=== PATIENT | female | born 1990 | race Caucasian/White ===

== ENCOUNTER → 2017-04-06 | Outpatient (CLI) | payer BC | LOC: SUN.DIA 04-05 14:22 | DX: O24.419 Gestational diabetes mellitus in pregnancy, unspecified control (principal); Z3A.31 31 weeks gestation of pregnancy; Z71.3 Dietary counseling and surveillance | CPT/HCPCS: G0108 ==

== ENCOUNTER → 2017-04-06 | Outpatient (CLI) | payer BC | LOC: SUN.DIA 15:15 | DX: O24.419 Gestational diabetes mellitus in pregnancy, unspecified control (principal); Z3A.31 31 weeks gestation of pregnancy; Z71.3 Dietary counseling and surveillance | CPT/HCPCS: G0108 ==

== ENCOUNTER → 2017-04-20 | Outpatient (CLI) | payer BC | LOC: SUN.DIA 12:35 | DX: O24.419 Gestational diabetes mellitus in pregnancy, unspecified control (principal); Z3A.33 33 weeks gestation of pregnancy; Z71.3 Dietary counseling and surveillance | CPT/HCPCS: G0108 ==

== ENCOUNTER → 2017-05-13 | Outpatient (CLI) | payer BC ==
[~2017-05-13] MED LIST: CALCIUM CARBON650 M2; IBU800 M1 PO; PERCOCET 325 MG1 TA2 PO; PRENATAL
== END ==
LOC: SUN.DIA 09:43
DX: O24.419 Gestational diabetes mellitus in pregnancy, unspecified control (principal); Z3A.37 37 weeks gestation of pregnancy; Z71.3 Dietary counseling and surveillance
CPT/HCPCS: G0108

== ENCOUNTER 2017-06-05 07:18 | Inpatient (IN) | payer BC ==
[2017-06-05] VITALS (49 sets, daily range): BP systolic 115–141; BP diastolic 70–94; PULSE 71–125; TEMP 97.1–98.1
[~2017-06-05] VITALS: Ht 162.6 cm; Wt 60.5 kg
[2017-06-05] MEDS ORDERED: PRENATAL (07:39)
[2017-06-05] MEDS ORDERED: CALCIUM CARBON650 M2 (07:40)
[2017-06-05 10:08] LABS: BASO # 0.1 (0.0-0.2); BASO % 0.3 % (0.0-2.0); EOS % 0.2 % (0-4.0); GRAN # 15.9 (1.4-6.5); HEMOGLOBIN 12.8 g/dl (12.5-16.0); LYMPH # 1.7 (1.2-3.4); LYMPH % 9.3 % (20.0-51.0); MEAN CELL VOLUME 89 fl (80.0-100.0); MEAN CORPUSCULAR HEMOGLOBIN 30 pg (27.0-31.0); MEAN CORPUSCULAR HGB CONC 34 g/dl (33.0-37.0); MEAN PLATELET VOLUME 12.2 fl (7.4-10.4); MONO # 0.8 (0.1-0.6); MONO % 4.5 % (1.7-9.3); PLATELET COUNT 203 K/mm3 (130-400); RED BLOOD COUNT 4.28 M/mm3 (4.10-5.30); WHITE BLOOD COUNT 18.7 K/mm3 (4.8-10.8)
[2017-06-06 03:00] VITALS: BP 103/68; PULSE 87; TEMP 98.3
[2017-06-06 06:34] VITALS: BP 117/80; PULSE 87; TEMP 97.7
[2017-06-06 12:00] VITALS: BP 148/70; PULSE 105; TEMP 98
[2017-06-06 16:30] VITALS: BP 118/79; PULSE 85; TEMP 98.3
[2017-06-06 19:30] VITALS: BP 120/78; PULSE 74; TEMP 97.7
[2017-06-07 07:45] VITALS: BP 114/71; PULSE 68; TEMP 98.3
[2017-06-07] MEDS ORDERED: IBU800 M1 PO (09:58)
[2017-06-07] MEDS ORDERED: PERCOCET 325 MG1 TA2 PO (09:58)
== END 2017-06-07 11:30 | disposition home or self-care (01) | DRG 775 ==
LOC: LDRO 07:18 → LDR 09:06 → OB 23:00
PROVIDERS: Student in an Organized Health Care Education/Training Program
PROC: 10E0XZZ Delivery of Products of Conception, External Approach (ICD-10-PCS; principal; 2017-06-05)
PROC: 0KQM0ZZ Repair Perineum Muscle, Open Approach (ICD-10-PCS; 2017-06-05)
DX: O24.420 Gestational diabetes mellitus in childbirth, diet controlled (principal); O70.1 Second degree perineal laceration during delivery; O69.81X0 Labor and delivery complicated by cord around neck, without compression, not applicable or unspecified; Z3A.39 39 weeks gestation of pregnancy; Z37.0 Single live birth
CPT/HCPCS: J2405; J2590; J7120

== ENCOUNTER → 2020-01-15 | Outpatient (CLI) | payer BC ==
[~2020-01-15] MED LIST changes: +MOTRIN 800800 MG/TAB PO; +OSCAL 500 TAB500 MG PO; +SLOW FE142 MG PO
== END ==
LOC: COL.LAB 09:00
DX: Z20.828 Contact with and (suspected) exposure to other viral communicable diseases (principal)

== ENCOUNTER 2020-01-17 06:09 | Inpatient (IN) | payer BC ==
[2020-01-17] VITALS (33 sets, daily range): BP systolic 102–137; BP diastolic 61–88; PULSE 62–122; TEMP 97.4–98.4
[~2020-01-17] VITALS: Ht 165.1 cm; Wt 68.6 kg
[~2020-01-17 06:09] MED LIST changes: -MOTRIN 800800 MG/TAB PO; -OSCAL 500 TAB500 MG PO; -SLOW FE142 MG PO
[2020-01-17] MEDS ORDERED: SLOW FE142 MG PO (07:51)
[2020-01-17] MEDS ORDERED: OSCAL 500 TAB500 MG PO (07:51)
--- NOTE | 2020-01-17 07:57 | NUR ---
PT HERE FOR INDUCTION OF LABOR. FHT'S FOUND IN THE 140'S WITH MODERATE VARIABILITY AND ACCELS. IV STARTED IN RIGHT HAND WITH LR INFUSING WITHOUT DIFFICULTY. ASSESSMENT COMPLETED. PLAN OF CARE REVIEWED WITH PT AND .
[2020-01-17 08:00] LABS: BASO % 0.2 % (0.0-2.0); EOS # 0.1 (0.0-0.7); EOS % 0.8 % (0-4.0); GRAN # 9.4 (1.4-6.5); GRAN % 73.8 % (42.2-75.2); HEMATOCRIT 37.1 % (37.0-47.0); HEMOGLOBIN 12.8 g/dl (12.5-16.0); LYMPH # 2.5 (1.2-3.4); LYMPH % 19.5 % (20.0-51.0); MEAN CELL VOLUME 91 fl (80.0-100.0); MEAN CORPUSCULAR HEMOGLOBIN 32 pg (27.0-31.0); MEAN CORPUSCULAR HGB CONC 35 g/dl (33.0-37.0); MEAN PLATELET VOLUME 11.7 fl (7.4-10.4); MONO # 0.7 (0.1-0.6); MONO % 5.2 % (1.7-9.3); PLATELET COUNT 175 K/mm3 (130-400); RED BLOOD COUNT 4.06 M/mm3 (4.10-5.30); REDCELL DISTRIBUTION WIDTH-CV 13.4 % (11.5-14.5)
--- NOTE | 2020-01-17 08:15 | NUR ---
SVE /-2. CERVIX POSTERIOR. PT RESTING IN BED. PITOCIN STARTED AT 2MU AT 0815
--- NOTE | 2020-01-17 09:00 | NUR ---
DR MARION IN AT 0845, SVE /-2, AROM AT 0846 WITH CLEAR FLUID.
--- NOTE | 2020-01-17 11:15 | NUR ---
VALENCIA REID,IT ADMINISTRATIVE ASSISTANT IN AT 1110 FOR EPIDURAL PLACEMENT. PT POSITIONED SITTING UPRIGHT.
--- NOTE | 2020-01-17 11:30 | NUR ---
SINGLE SHOT AT 1116 BY ARIE NORIEGA, WITH NO ABNORMAL SYMPTOMS OBSERVED OR REPORTED. PT REPOSITIONED LYING DOWN AFTER EPIDURAL PLACEMENT.
--- NOTE | 2020-01-17 12:00 | NUR ---
DR MARION IN AT 1146. SVE /-2, CERVIX NOW MIDPOSITION. FHT'S DOWN TO 90'S AFTER CERVICAL CHECK. PT REPOSITIONED 3 TIMES WITH FHT'S BACK TO BASELINE AFTER [address] MARION AT HOS[facility]ITAL AND OBSERVES DECELERATION. SCHULTZ CATHETER PLACED WITH CLEAR YELLOW URINE RETURNED.
--- NOTE | 2020-01-17 12:45 | NUR ---
DR CORRALES IN AT 1240. SVE /-2. PT REPOSITIONED DAIN POSITION.
--- NOTE | 2020-01-17 13:52 | NUR ---
AFTER PATIENT PLACED IN LEFT LATERAL WITH LEFT LEG IN STIRRUP, AUDIBLE DROP IN FTH'S TO THE 90'S FOR APPROX 2 1/2 MINUTES. PT REPOSITIONED TO WEDGE LEFT, SVE 10/100/+2. PHONED DR MARION AT 1338 WITH UPDATE. PT POSITIONED FOR PUSHING. SVE AT 1342 WITH HEAD LOWER, PHONED DR MARION AT 1341 TO COME FOR DELIVERY. SCHULTZ CATHETER REMOVED WITH BALLOOON INTACT. DR MARION HERE AT 1348. PUSHING STARTED AT 1350. OF FEMALE AT 1352 WITH GOOD COLOR AND VIGOROUS CRY.
--- NOTE | 2020-01-17 14:00 | NUR ---
DR MARION AT BEDSIDE REPAIRING PERINEUM. FUNDUS FIRM, DOWN 3, WITH MINIMAL BLEEDING. PITOCIN STARTED AT 333ML/HR AFTER DELIVERY OF PLACENTA AT 1357. PT HOLDING BABY WITH AT BEDSIDE.
--- NOTE | 2020-01-17 15:35 | NUR ---
PT RESTING IN BED HOLDING BABY. LEFT LEG STILL NUMB. FUNDUS FIRM WITH SMALL AMOUNT OF BLEEDING. IV TO INT.
--- NOTE | 2020-01-17 16:30 | NUR ---
Assisted to wheel chair times two nurses. Patient states left leg still numb. Assisted to toilet. Unable to void at this time. Gris-care explained and done by patient. To room 207 via wheel chair. Encouraged to drink water. Also let her know to use the call light for us to help her to the bathroom.
[2020-01-18 03:30] VITALS: BP 117/71; PULSE 89; TEMP 97.8
[2020-01-18] MEDS ORDERED: MOTRIN 800800 MG/TAB PO (08:54)
[2020-01-18 09:00] VITALS: BP 108/71; PULSE 87; TEMP 97.9
--- NOTE | 2020-01-18 09:00 | NUR ---
Rests in bed, alert. Request pain medication. Tylenol 650 mg given per request and as ordered.
--- NOTE | 2020-01-18 10:53 | NUR ---
Rests in bed, alert, baby. Ibuprofen 800 mg given per request and as ordered.
== END 2020-01-18 16:40 | disposition home or self-care (01) | DRG 806 ==
LOC: LDR 06:09 → OB 16:30
PROVIDERS: ADMIT Student in an Organized Health Care Education/Training Program
PROC: 10E0XZZ Delivery of Products of Conception, External Approach (ICD-10-PCS; principal; 2020-01-17)
PROC: 0KQM0ZZ Repair Perineum Muscle, Open Approach (ICD-10-PCS; 2020-01-17)
PROC: 10907ZC Drainage of Amniotic Fluid, Therapeutic from Products of Conception, Via Natural or Artificial Opening (ICD-10-PCS; 2020-01-17)
PROC: 3E033VJ Introduction of Other Hormone into Peripheral Vein, Percutaneous Approach (ICD-10-PCS; 2020-01-17)
DX: O48.0 Post-term pregnancy (principal); O23.593 Infection of other part of genital tract in pregnancy, third trimester; Z37.0 Single live birth; O70.1 Second degree perineal laceration during delivery; B96.89 Other specified bacterial agents as the cause of diseases classified elsewhere; O36.5993 Maternal care for other known or suspected poor fetal growth, unspecified trimester, fetus 3; Z3A.40 40 weeks gestation of pregnancy
CPT/HCPCS: J2590; J2795; J7120